=== PATIENT | female | born 1975 | race American Indian/Alaskan Native ===

== ENCOUNTER 2018-01-01 08:23 | Emergency (ER) | payer BC ==
[2018-01-01] MEDS ORDERED: ASPIRIN PO ONE (08:41)
[2018-01-01 09:41] LABS: Basophils # (Auto) 0.1 K/mm3 (0.0-0.1); Eosinophils # (Auto) 0.1 K/mm3 (0.0-0.4); Eosinophils % (Auto) 1.4 % (0.0-4.3); Hematocrit 40.9 % (30.3-42.9); Hemoglobin 13.6 gm/dl (10.1-14.3); Lymphocytes # (Auto) 1.2 K/mm3 (1.2-5.4); Mean Corpuscular HGB Conc 33 % (30-34); Mean Corpuscular Hemoglobin 30 pg (28-32); Mean Corpuscular Volume 89 fl (79-97); Monocytes # (Auto) 0.6 K/mm3 (0.0-0.8); Monocytes % (Auto) 7.8 % (0.0-7.3); Platelet Count 264 K/mm3 (140-440); Red Blood Count 4.61 M/mm3 (3.65-5.03); Red Cell Distribution Width 14.4 % (13.2-15.2)
[2018-01-01 09:53] LABS: BUN/Creatinine Ratio 14; Blood Urea Nitrogen 10 mg/dL (7-17); Calcium 9.3 mg/dL (8.4-10.2); Hemolysis Index 17; Lipase 29 units/L (13-60)
[2018-01-01 10:11] LABS: Alanine Aminotransferase 15 units/L (7-56); Albumin 4.5 g/dL (3.9-5)
[2018-01-01 10:12] LABS: Bilirubin,Direct < 0.2 mg/dL (0-0.2)
[2018-01-01] MEDS ORDERED: SUBLIMAZE IV ONE (10:13)
--- NOTE | 2018-01-01 10:14 | Emergency Department Report ---
ED General Adult HPI - General Chief complaint: Abdominal Pain Stated complaint: ABD AND CHEST PAIN Time Seen by Provider: 01/01/18 10:00 Source: patient, RN notes reviewed Mode of arrival: Ambulatory Limitations: No Limitations - History of Present Illness Initial comments: This is a 42-year-old female who was previously on known to this provider. She does not have a primary care doctor. She has a past medical history of GERD and hypertension. Patient presents to the ER with a complaint of left lower quadrant pain. It is sharp. It is intermittent. It is present chronically over the past few weeks to months. It increases with palpation and decreases with rest. There is no nausea, vomiting, urinary symptoms. The patient reports that she is not . She reports that she is not constipated. She has no vaginal discharge or feminine discharge. Over the past 48-72 hours, the pain has been radiating up to her chest. The chest discomfort itself does not really to the back, arms or neck. There is no vomiting or diaphoresis. She does not take oral contraceptives. There is no leg pain, no leg swelling. There are no DVT or pulmonary embolus risk factors. No recent aspirin ingestion , no recent cocaine ingestion, no family history of coronary artery disease at the patient is aware of. -: Gradual, week(s) Location: abdomen Radiation: other (chest) Quality: aching Consistency: intermittent Improves with: rest Worsens with: movement Associated Symptoms: chest pain, other (llq abdominal pain). denies: confusion , cough, diaphoresis, fever/chills, headaches, loss of appetite, malaise, nausea /vomiting, rash, seizure, shortness of breath, syncope, weakness - Related Data Previous Rx's Medication Instructions Recorded Last Taken Type Acetaminophen [Tylenol Arthritis] 650 mg PO Q6HR PRN #30 tablet.er 01/01/18 Unknown Rx Doxycycline [Vibramycin] 100 mg PO Q12HR #28 capsule 01/01/18 Unknown Rx Famotidine [Pepcid] 20 mg PO BID #30 tablet 01/01/18 Unknown Rx Ondansetron [Zofran Odt] 4 mg PO Q8HR PRN #20 tab.rapdis 01/01/18 Unknown Rx Allergies Allergy/AdvReac Type Severity Reaction Status Date / Time No Known Allergies Allergy Verified 01/01/18 10:01 ED Review of Systems ROS: Stated complaint: ABD AND CHEST PAIN Other details as noted in HPI Comment: All other systems reviewed and negative ED Past Medical Hx - Past Medical History Previous Medical History?: Yes Hx Hypertension: Yes (no meds) Hx GERD: Yes - Surgical History Past Surgical History?: Yes Additional Surgical History: Urinary tube blockage , Tubaligation - Social History Smoking Status: Current Every Day Smoker Substance Use Type: Alcohol, Marijuana, Prescribed - Medications Home Medications: Home Medications Medication Instructions Recorded Confirmed Last Taken Type Acetaminophen [Tylenol Arthritis] 650 mg PO Q6HR PRN #30 tablet.er 01/01/18 Unknown Rx Doxycycline [Vibramycin] 100 mg PO Q12HR #28 capsule 01/01/18 Unknown Rx Famotidine [Pepcid] 20 mg PO BID #30 tablet 01/01/18 Unknown Rx Ondansetron [Zofran Odt] 4 mg PO Q8HR PRN #20 tab.rapdis 01/01/18 Unknown Rx ED Physical Exam - General Limitations: No Limitations General appearance: alert, in no apparent distress - Head Head exam: Present: atraumatic, normocephalic - Eye Eye exam: Present: normal appearance, EOMI. Absent: nystagmus - ENT ENT exam: Present: normal exam, normal orophraynx, mucous membranes moist, normal external ear exam - Neck Neck exam: Present: normal inspection, full ROM - Respiratory Respiratory exam: Present: normal lung sounds bilaterally. Absent: respiratory distress - Cardiovascular Cardiovascular Exam: Present: normal rhythm, bradycardia, normal heart sounds. Absent: systolic murmur, diastolic murmur, rubs, gallop - GI/Abdominal GI/Abdominal exam: Present: soft, tenderness (there is left lower quadrant tenderness. There is no rebound, guarding or peritoneal signs), normal bowel sounds. Absent: distended, guarding, rebound, rigid, pulsatile mass - External exam: Present: normal external exam Speculum exam: Present: normal speculum exam Bi-manual exam: Present: cervical motion tendernes, adnexal tenderness, other ( escorted by nurse LINDSEY LAMB). Absent: uterine enlargement, uterine tenderness - Extremities Exam Extremities exam: Present: normal inspection, full ROM, normal capillary refill , other (there is no palpable cord. There is a negative Homans sign). Absent: pedal edema, joint swelling, calf tenderness - Back Exam Back exam: Present: normal inspection, full ROM. Absent: tenderness, CVA tenderness (R), paraspinal tenderness, vertebral tenderness - Neurological Exam Neurological exam: Present: alert, oriented X3, CN II-XII intact, normal gait, other (Extraocular movements intact. Tongue midline. No facial droop. Facial sensation intact to light touch in the V1, V2, V3 distribution bilaterally. 5 and 5 strength in 4 extremities.. Sensation is intact to light touch in 4 extremities.). Absent: motor sensory deficit - Psychiatric Psychiatric exam: Present: normal affect, normal mood - Skin Skin exam: Present: warm, dry, intact, normal color. Absent: rash ED Course Vital Signs 01/01/18 01/01/18 01/01/18 08:35 09:54 10:00 Temperature 97.9 F Pulse Rate 78 60 Respiratory 20 15 Rate Blood Pressure 138/93 139/75 127/74 O2 Sat by Pulse 100 100 100 Oximetry 01/01/18 01/01/18 10:16 10:30 Temperature Pulse Rate 65 70 Respiratory 21 24 Rate Blood Pressure 127/74 127/74 O2 Sat by Pulse 100 100 Oximetry - Reevaluation(s) Reevaluation #1: 01/01/18 10:49 Differential diagnosis, including but not limited to: Ovarian cyst, ovarian torsion, endometriosis, constipation, ectopic , urinary tract infection , hiatal hernia, GERD, gastritis, pneumonia, pneumothorax, acute coronary syndrome Assessment and plan: 42-year-old female with a primary complaint of left lower quadrant pain that radiates to the chest. She is tender in the left lower quadrant. Urinalysis and test are pending at this time. There are no pulmonary embolus or DVT risk factors she is low risk by well's criteria, she is low risk by MARGOTH score, and she is low risk by heart score. Chest discomfort has been present for over 48 hours, therefore as per the [employer] clinical policy, myocardial infarction may be excluded with 1 set of cardiac enzymes. Chest pain is atypical historically, and present for over a day, patient at low risk for major adverse cardiac event and can follow up with outpatient cardiology. Pelvic ultrasound pending, CAT scan of the abdomen and pelvis is pending, gynecologic exam is pending at this time. Reevaluation #2: 01/01/18 13:17 Ultrasound of the pelvis negative for acute disease. Patient had cervical motion tenderness and adnexal tenderness. CT scan of the abdomen and pelvis is pending. Patient had a nonspecific cutaneous reaction after Zofran administration, and was treated empirically with Pepcid, Benadryl, and Solu-Medrol she had some proximal streaking. She is protecting her airway this time. Plan is to treat empirically for pelvic inflammatory disease CT scan is negative for surgical pathology. Reevaluation #3: 01/01/18 15:14 CT scan demonstrates no immediate surgical condition of the left lower quadrant. Patient is tolerating oral feeds. Her pain is improved. She will be treated empirically for pelvic inflammatory disease given her gynecologic examination. She will be given ceftriaxone and doxycycline in the emergency room and discharged with pain medication, nausea medication and doxycycline. ED Medical Decision Making - Lab Data Result diagrams: 01/01/18 08:45 01/01/18 08:45 Vital Signs 01/01/18 01/01/18 01/01/18 08:35 09:54 10:00 Temperature 97.9 F Pulse Rate 78 60 Respiratory 20 15 Rate Blood Pressure 138/93 139/75 127/74 O2 Sat by Pulse 100 100 100 Oximetry 01/01/18 01/01/18 10:16 10:30 Temperature Pulse Rate 65 70 Respiratory 21 24 Rate Blood Pressure 127/74 127/74 O2 Sat by Pulse 100 100 Oximetry Lab Results 01/01/18 01/01/18 01/01/18 Range/Units 08:45 08:45 08:45 WBC 7.3 (4.5-11.0) K/mm3 RBC 4.61 (3.65-5.03) M/mm3 Hgb 13.6 (10.1-14.3) gm/dl Hct 40.9 (30.3-42.9) % MCV 89 (79-97) fl MCH 30 (28-32) pg MCHC 33 (30-34) % RDW 14.4 (13.2-15.2) % Plt Count 264 (140-440) K/mm3 Lymph % (Auto) 17.0 (13.4-35.0) % Mayes % (Auto) 7.8 H (0.0-7.3) % Eos % (Auto) 1.4 (0.0-4.3) % Baso % (Auto) [employer] Lymph # 1.2 (1.2-5.4) K/mm3 Mayes # 0.6 (0.0-0.8) K/mm3 Eos # 0.1 (0.0-0.4) K/mm3 Baso # 0.1 (0.0-0.1) K/mm3 Seg Neutrophils % 72.5 H (40.0-70.0) % Seg Neutrophils # 5.3 (1.8-7.7) K/mm3 Sodium 141 (137-145) mmol/L Potassium 3.6 (3.6-5.0) mmol/L Chloride 100.5 (98-107) mmol/L Carbon Dioxide 26 (22-30) mmol/L Anion Gap 18 mmol/L BUN 10 (7-17) mg/dL Creatinine 0.7 (0.7-1.2) mg/dL Estimated GFR > 60 ml/min BUN/Creatinine Ratio 14 % Glucose 111 H (65-100) mg/dL Calcium 9.3 (8.4-10.2) mg/dL Total Bilirubin 0.30 (0.1-1.2) mg/dL Direct Bilirubin < 0.2 (0-0.2) mg/dL Indirect Bilirubin 0.1 mg/dL AST 21 (5-40) units/L ALT 15 (7-56) units/L Alkaline Phosphatase 50 (35-129) units/L Troponin T < 0.010 (0.00-0.029) ng/mL Total Protein 7.2 (6.3-8.2) g/dL Albumin 4.5 (3.9-5) g/dL Albumin/Globulin Ratio 1.7 % Lipase 29 (13-60) units/L - EKG Data -: EKG Interpreted by Ar - EKG Data When compared to previous EKG there are: previous EKG unavailable 01/01/18 10:48 EKG #1 demonstrates sinus, 80 bpm, incomplete right bundle-branch block, nonspecific T-wave abnormalities, abnormal EKG, not consistent with a STEMI. EKG #2 demonstrates sinus bradycardia, biphasic T-wave, T-wave inversion in lead 3, abnormal EKG, not morphologically consistent with a STEMI - Radiology Data Radiology results: report reviewed, image reviewed x-ray of the chest, interpreted by myself and radiology: No acute disease Critical care attestation.: If time is entered above; I have spent that time in minutes in the direct care of this critically ill patient, excluding procedure time. ED Disposition Clinical Impression: Left lower quadrant abdominal pain of unknown etiology, Chest pain Disposition: TO HOME OR SELFCARE Is pt being admited?: No Does the pt Need Aspirin: No Condition: Stable Instructions: Chest Pain (ED), Abdominal Pain (ED) Additional Instructions: Cultures were sent today. Results will be available in the next 3-5 days. Have primary care doctor or forming tube selector contact the medical records department to obtain culture results. Take pain medication as directed. Follow up with the director business treat her chest pain and abnormal EKG within the next 3-5 days. Return to the ER right away with the pain, worse pain, migration of pain , fevers, chills, lethargy, irritability, projectile vomiting, change in mental status, confusion, inability to tolerate liquid feeds. CT scan of the abdomen and pelvis demonstrated nonspecific hepatic abnormalities. Follow up with a primary care doctor for this within the next month. Return to the ER right away with new symptoms. Cultures were sent today, and results will be available next 3-5 days. Please have your primary care doctor call the medical records department to obtain your culture results. Take the antibiotic therapy as directed. Take the nausea medication and pain medication as directed. I recommend outpatient testing for sexually transmitted diseases, including hepatitis, syphilis and HIV. I also recommend that you abstain from sexual activity until you have completed her antibiotic therapy, a physician states that it is safe for you to resume sexual activity, and any partners that you have been sexually active with have been tested/treated/evaluated for sexual transmitted diseases. Please follow-up with physician within 3-5 days. I recommend that you return to the ER right away with worsening pain, migration of pain, intractable nausea/vomiting, inability tolerate liquid feeds. Referrals: PRIMARY CARE, [Primary Care Provider] - 3-5 Days [facility] [Provider Group] - 3-5 Days [facility] [Provider Group] - 3-5 Days
--- NOTE | 2018-01-01 10:27 | XRay Report ---
Single view chest: History: Chest pain. Findings: Normal cardiomediastinal silhouette. Trachea is midline. No consolidation, pneumothorax or pleural effusion. Impression: No acute cardiopulmonary findings.
[2018-01-01] MEDS ORDERED: CARAFATE PO ONE (10:44)
[2018-01-01] MEDS ORDERED: PEPCID IV ONE (10:44)
[2018-01-01] MEDS ORDERED: NACL 0.9% 500 ML 500 ML IV SCH (11:00)
[2018-01-01] MEDS ORDERED: ZOFRAN IV ONE (11:47)
[2018-01-01] MEDS ORDERED: BENADRYL IV ONE (12:05)
[2018-01-01 12:23] LABS: Bilirubin,Urine NEG (Negative); Blood,Urine SM (Negative); Color,Urine Yellow (Yellow); Mucus,Urine FEW /HPF; Protein,Urine <15 mg/dL mg/dL (Negative); Urobilinogen,Urine < 2.0 mg/dL (<2.0)
--- NOTE | 2018-01-01 12:40 | Ultrasound Report ---
Pelvic and transvaginal sonography: History: Left lower quadrant pain. Findings: Uterus measures 8.6 x 4.4 x 5.3 cm. Endometrial thickness 10.9 mm. No fluid or mass in the endometrium. The fibroid identified at the posterior fundus measuring 1.3 x 1.2 x 1.4 cm. Right ovary 4.1 x 2 x 2.2 cm. No mass. Left ovary 2.1 x 2.6 x 3.2 cm cyst in the left ovary measures 2.6 cm. Impression: Small uterine fibroid. Cyst left ovary.
--- NOTE | 2018-01-01 15:11 | Cat Scan Report ---
FINAL REPORT EXAM: CT ABDOMEN PELVIS W CON HISTORY: llq pain TECHNIQUE: CT of the abdomen and pelvis was performed after the administration of intravenous contrast. Subsequently, CT of the abdomen and pelvis was performed in the delayed phase. Reconstructions were included in the coronal and sagittal planes. PRIORS: None. FINDINGS: Lower thorax: The lung bases are clear. The visualized portions of the heart are normal. Liver: The liver is normal in attenuation. No intrahepatic biliary duct dilation. There is a nonspecific 1 centimeter hyper attenuating lesion in the right hepatic lobe, segment 6. A similar appearing lesion is seen in the left hepatic lobe measuring 1 centimeter, segment 2. These lesions are iso-attenuating to the liver on the delayed phase. Gallbladder/ biliary system: No cholelithiasis. The common bile duct appears nondilated. Spleen: No splenic lesions are seen. Pancreas: No pancreatic lesions are seen. No pancreatic duct dilation. Kidneys: No renal masses, cysts or hydronephrosis. No ureteral filling defects are seen. Surgical clips are seen within the region of the right retroperitoneum. Adrenal glands: No adrenal masses. Vasculature: The abdominal and pelvic vasculature is patent without variant anatomy. Lymph nodes: No enlarged lymph nodes are seen in the abdomen or pelvis. Bowel, mesentery, peritoneum: No bowel obstruction. No free fluid or free air. The proximal portion of the appendix is normal. The distal portion was not definitively seen. No colonic diverticulosis. No bowel wall thickening. Urinary bladder: No filling defects are seen. Pelvis: An 8 millimeter cystic lesion is seen in the region of the right labia. The uterus and ovaries appear grossly unremarkable. Abdominal wall: No abdominal wall hernia or other subcutaneous findings. Bones: No acute or chronic osseous finding. IMPRESSION: 1. No acute intra-abdominal or intrapelvic process. 2. Nonspecific hyper attenuating hepatic lesions should be further characterized on dedicated hepatic MRI or CT. 3. Cystic lesion in the region of the right labia most likely representing a Bartholin cyst.
[2018-01-01] MEDS ORDERED: VIBRAMYCIN PO ONE (15:14)
[2018-01-01] MEDS ORDERED: ROCEPHIN 250 MG in NACL 0.9% 50 ML IV STA (15:14)
[2018-01-01] MEDS ORDERED: ROCEPHIN ONE (15:37)
[2018-01-01] MEDS ORDERED: ROCEPHIN IM ONE (16:43)
[2018-01-01] MEDS ORDERED: NARCAN 0.4 MG/1 ML IV ONE (19:06)
[2018-01-01] MEDS ORDERED: NARCAN 0.4 MG/1 ML ONE (19:07)
[2018-01-01 19:58] VITALS: BP 155/77
== END 2018-01-01 21:51 | disposition home or self-care (01) ==
LOC: ED 08:23
DX: R10.32 Left lower quadrant pain (principal); R07.9 Chest pain, unspecified; I10 Essential (primary) hypertension; K21.9 Gastro-esophageal reflux disease without esophagitis; F17.200 Nicotine dependence, unspecified, uncomplicated; F12.10 Cannabis abuse, uncomplicated
CPT/HCPCS: 36415; 71045; 74177; 76830; 80048; 80074; 81001; 82962; 83690; 84484; 84702; 85025; 87210; 87591; 93005; 93010; 93975; 96365; 96375; 99285; J0696; J1200; J2310; J2405; J2930; J3010; J7040; Q9967